=== PATIENT | female | born 1935 | race African-American/Black ===

== ENCOUNTER → 2016-07-07 | Outpatient (CLI) | payer OTHER ==
[~2016-07-07] VITALS: Ht 157.5 cm; Wt 95.3 kg
[~2016-07-07] MED LIST: COUMADIN 1MG TAB1 M1 PO; COUMADIN 2.5MG2.5 M1 PO; COUMADIN 5 MG TA5 M1 PO; CYCLOBENZAPRINE5 MG PO; DUREZOL5 ML OP; FLONASE 0.05%50 MCG NASAL; HYDROCODON-ACE1 EAC7 PO; HYZAAR 100-251 EACH PO; IRON325 PO; NORVASC5 MG PO; PERCOCET PO; PREDNISONE 5 MG5 M1 PO; PROLENSA1.6 ML OP; SIMVASTATIN40 MG PO; TRAMADOL 50 MG50 MG PO; VIGAMOX3 M1 OP; WARFARIN SODIU7.5 MG PO
--- NOTE | ~2016-07-07 | P ---
[facility] [place] [address] PROCEDURE REPORT Name: SAJI PETERSON Room #: [facility]#: [id number] Admission: 07/07/16 Attend Phys: Blaine Crowder Discharge: Date of : 35 Report #: [id number] THIS REPORT FOR: //name// CC: Blaine Steiner MD DATE OF SERVICE: 07/07/2016 PROCEDURE PERFORMED: Colonoscopy. HISTORY OF PRESENT ILLNESS: The patient is an 81-year-old female with previous history of colon polyps. She denies any symptoms at this time. No family history of colon cancer. DESCRIPTION OF PROCEDURE: The risks and benefits of the procedure were explained to the patient, those risks including but not limited to bleeding, perforation and the risk of sedation. She understood these risks and gave informed consent. Sedation was given using propofol per anesthesia. Next, a digital rectal exam was initially performed, which was normal. Next, using a standard Fujinon colonoscope, the scope was placed in the patient's anus and advanced under direct vision to the cecum. The overall prep was excellent. The cecum and ileocecal valve were normal in appearance. Ascending, transverse, descending and sigmoid colon were all normal. The rectal mucosa was normal. On retroflexion, no abnormalities were noted. The scope was then withdrawn and the procedure terminated. The patient tolerated the procedure well. IMPRESSION: Normal colonoscopy. RECOMMENDATIONS: Observe the patient. No further screening colonoscopy is needed. Thank you for allowing me to participate in her care. By: 0925 [id number] Blaine Gill MD /nt
== END | disposition home or self-care (01) ==
LOC: GI 07:40
DX: Z86.010 Personal history of colon polyps (principal); I10 Essential (primary) hypertension; E78.00 Pure hypercholesterolemia, unspecified; M19.90 Unspecified osteoarthritis, unspecified site; Z90.710 Acquired absence of both cervix and uterus; Z85.528 Personal history of other malignant neoplasm of kidney; Z98.41 Cataract extraction status, right eye; Z98.42 Cataract extraction status, left eye; Z96.1 Presence of intraocular lens; Z90.49 Acquired absence of other specified parts of digestive tract; Z98.890 Other specified postprocedural states
CPT/HCPCS: 62110; 62900

== ENCOUNTER → 2017-08-15 | Outpatient (CLI) | payer OTHER ==
[~2017-08-15] MED LIST changes: +TYLENOL EXTRA500 MG PO
== END ==
LOC: NUC 09:29
DX: M85.89 Other specified disorders of bone density and structure, multiple sites (principal); Z78.0 Asymptomatic menopausal state

== ENCOUNTER 2018-06-29 14:32 | Inpatient (IN) | payer OTHER ==
[~2018-06-29] VITALS: Ht 157.5 cm; Wt 98.0 kg
[2018-06-29 14:33] VITALS: BP 87/55
[2018-06-29 15:06] LABS: ABSOLUTE NEUTROPHILS 4.9 thou/uL (1.4-8.2); BASOPHILS 0.8 % (0.0-2.0); EOSINOPHILS 1.4 % (0.0-3.0); HEMATOCRIT 42.2 % (37.0-47.0); HEMOGLOBIN 13.6 gm/dL (12.0-15.0); LYMPHOCYTES 18.2 % (24.0-44.0); MCH 30.1 pg (26.0-34.0); MCHC 32.4 g/dL (28.0-37.0); MONOCYTES 7.1 % (1.0-8.0); POLYS 72.5 % (36.0-66.0); RBC 4.53 mil/uL (4.20-5.00); RDW 14.5 % (10.5-14.5); WBC 6.7 thou/uL (4.0-11.0)
[2018-06-29 15:08] LABS: ANION GAP 10 mmol/L (7-16); BUN 20 mg/dL (7-18); CHLORIDE 101 mmol/L (98-107); CO2 29 mmol/L (21-32); CREATININE 1.7 mg/dL (0.6-1.0); GLUCOSE 157 mg/dL (74-106); POTASSIUM 3.1 mmol/L (3.5-5.1); SODIUM 140 mmol/L (136-145)
[2018-06-29 15:18] LABS: ALBUMIN 3.6 g/dL (3.4-5.0); SGOT 17 U/L (15-37); SGPT 14 U/L (30-65); TOTAL BILIRUBIN 0.8 mg/dL (<0.1-1.0); TOTAL PROTEIN 7.7 g/dL (6.4-8.2); TROPONIN-I <0.06 ng/mL (<0.06)
[2018-06-29 15:50] LABS: LARGE PLATELETS RARE; PLATELET COUNT 143 thou/uL (150-400)
[2018-06-29 16:36] LABS: URINE BLOOD NEGATIVE (Negative); URINE CLARITY CLEAR; URINE COLOR YELLOW; URINE GLUCOSE-RANDOM* NEGATIVE (Negative); URINE KETONES TRACE (Negative); URINE LEUKOCYTES-REFLEX NEGATIVE (Negative); URINE NITRITE-REFLEX NEGATIVE (Negative); URINE PROTEIN (DIPSTICK) 1+ (Negative); URINE SPECIFIC GRAVITY 1.015 (1.005-1.035)
[2018-06-29 16:37] LABS: ICTOTEST (BILI CONFIRMATORY) Negative (Negative); URINE BILIRUBIN NEGATIVE (Negative)
[2018-06-29 16:39] LABS: URINE CREATININE-RANDOM* 278.6 mg/dL
[2018-06-29 16:44] LABS: AMORPHOUS URATES Moderate /LPF (None Seen); BACTERIA-REFLEX 1-9 Few /HPF (None Seen); CASTS None Seen /LPF (None Seen); SQUAMOUS >10 Many /LPF (0-3); URINE RBC 0-2 Rare /HPF (0-2); URINE WBC-REFLEX 0-5 Rare /HPF (0-5)
[2018-06-29 17:55] VITALS: BP 158/69
[2018-06-29 18:00] VITALS: BP 151/68
[2018-06-29 18:10] VITALS: BP 152/83
[2018-06-29 19:40] VITALS: BP 143/78
--- NOTE | 2018-06-29 20:30 | NUR ---
Pt. was admitted to the unit earlier on the day shift. She is resting quietly in the bed and offers no complaints. Admission assessment and history is com- pleted. Bed alarm is on.
[2018-06-29 23:43] VITALS: BP 131/74
--- NOTE | 2018-06-30 04:00 | NUR ---
Pt. rested quietly at intervals during the night when checked on during frequent rounds. Up to the bathroom with assistance of one. Bed alarm is on.
[2018-06-30 04:55] VITALS: BP 124/55
[2018-06-30 05:42] LABS: CREATININE 1.4 mg/dL (0.6-1.0); MAGNESIUM 1.4 mg/dL (1.8-2.4); POTASSIUM 3.5 mmol/L (3.5-5.1)
[2018-06-30 08:00] VITALS: BP 145/83
--- NOTE | 2018-06-30 10:32 | EKG ---
[place] [address] [facility] [place] [address] ELECTROCARDIOGRAM REPORT Name: SAJI PETERSON Room #: 215-P ADM IN M.R.#: [id number] ������������������ Admission: 06/29/18 ������������������ Attend Phys: Librado Huang MD Discharge: ������������������ Date of : 35 Report #: [id number] ����������������������������������������������������������������� [id number] THIS REPORT FOR: //name// [facility] ED Test Date: 2018-06-29 Test Time: 14:50:52 Pat Name: SAJI PETERSON Department: Room: 215 Gender: F Route Driver: LINDA : 1935 Requested By: Arin Harrell Order Number: [id number] MD: Shaheen Avery Measurements Intervals [place] Rate: 70 P: 58 KS: 159 QRS: -1 QRSD: 81 T: 30 QT: 379 QTc: 409 Interpretive Statements Sinus rhythm Probable left atrial enlargement Abnormal R-wave progression, early transition Nonspecific ST segment abnormalities Compared to ECG 09/20/2015 11:48:01 ST (T wave) deviation now present Electronically Signed On 06-30-2018 10:32:31 CDT by Shaheen Avery [email or web address] ��������������������������������������������� <ELECTRONICALLY SIGNED> ���������������������������������������� By: Shaheen Avery MD ��������������������������������������������� 06/30/18 1032 145 49 Shaheen Avery MD /DAVID
[2018-06-30 12:00] VITALS: BP 130/69
[2018-06-30] MEDS ORDERED: MAG6464 MG PO (13:34)
[2018-06-30] MEDS ORDERED: COZAAR 50 MG TA50 M1 PO (13:34)
[2018-06-30 15:17] VITALS: BP 130/69
--- NOTE | 2018-06-30 15:35 | NUR ---
ASSUMED CARE AT 0700, PATIENT AWAKE AND ALERT, OX4. NS WITH 20KCL INFUSING AT 80ML/HR. REPEAT LABS ARE K+ 3.5 AND MG+ 1.4. CALLED TO DR. LINDA, NO NEW ORDERS RECIEVED. DISCHARGE ORDERS RECIEVED THIS AFTERNOON AND EDUCATION COMPLETED WITH PATIENT CONCERNING NEW MEDICATION. VERBALIZED UNDERSTANDING AND FAMILY IN THE ROOM WITH PATIENT. WILL DISCHARGE IN STABLE CONDITION TO HOME
== END 2018-06-30 17:00 | disposition home or self-care (01) | DRG 315 ==
LOC: ER 14:32 → EROBS 17:03 → 2N 18:02
PROVIDERS: Emergency Medicine; Physician Assistant; ADMIT Internal Medicine
DX: I95.9 Hypotension, unspecified (principal); N17.9 Acute kidney failure, unspecified; E78.00 Pure hypercholesterolemia, unspecified; I10 Essential (primary) hypertension; M19.90 Unspecified osteoarthritis, unspecified site; E87.6 Hypokalemia; E83.42 Hypomagnesemia; E66.01 Morbid (severe) obesity due to excess calories; R41.81 Age-related cognitive decline; Z68.39 Body mass index [BMI] 39.0-39.9, adult; Z90.710 Acquired absence of both cervix and uterus; Z90.722 Acquired absence of ovaries, bilateral; Z90.5 Acquired absence of kidney; Z85.528 Personal history of other malignant neoplasm of kidney; Z90.49 Acquired absence of other specified parts of digestive tract; Z98.42 Cataract extraction status, left eye; Z98.41 Cataract extraction status, right eye; Z79.01 Long term (current) use of anticoagulants; Z79.899 Other long term (current) drug therapy
CPT/HCPCS: 10081

== ENCOUNTER 2018-10-17 12:59 | Inpatient (IN) | payer OTHER ==
[~2018-10-17] VITALS: Ht 157.5 cm; Wt 95.9 kg
[~2018-10-17 12:59] MED LIST changes: +COZAAR 50 MG TA50 M1 PO; +MAG6464 MG PO
[2018-10-17 13:32] VITALS: BP 180/102
[2018-10-17] MEDS ORDERED: ARICEPT10 MG PO (14:47)
[2018-10-17] MEDS ORDERED: MEMANTINE HCL E28 MG PO (14:47)
[2018-10-17] MEDS ORDERED: LOSARTAN POTASS50 MG PO (14:48)
[2018-10-17] MEDS ORDERED: MAG6464 MG PO (14:49)
--- NOTE | 2018-10-17 15:36 | NUR ---
PT ADMITTED RELATED TO SOA, CHF. CM REVIEWED CHART AND SPOKE WITH CARE TEAM. CM MET WITH PT AT BEDSIDE THIS DAY. PT IS A&O X4. CM ROLE INTRODUCED. PT INDICATED SHE LIVES IN A HOUSE WITH HER SPOUSE WITH 3 STEPS TO ENTER, 5 STEPS TO BEDROOM, 7 STEPS TO GARAGE, AND 3 STEPS IN BACK. 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 PT INIDCATED NO HH HX. PT'S SPOUSE IS ALSO SURRENLY HOSPITILIZED HERE. PT INDICATED SHE PLANS TO DC HOME ONCE MEDICALLY STABLE. CM TO FOLLOW INIDCTED WITH DC PLANNING.
[2018-10-17 16:09] LABS: HEMATOCRIT 39.4 % (37.0-47.0); HEMOGLOBIN 12.5 gm/dL (12.0-15.0); MCH 29.1 pg (26.0-34.0); MCHC 31.6 g/dL (28.0-37.0); MCV 92.1 fL (80.0-100.0); RBC 4.28 mil/uL (4.20-5.00); RDW 16.6 % (10.5-14.5); WBC 5.1 thou/uL (4.0-11.0)
[2018-10-17 16:21] LABS: PROTIME 20.8 Seconds (9.3-11.4)
[2018-10-17 16:28] LABS: ALBUMIN 3.5 g/dL (3.4-5.0); ANION GAP 9 mmol/L (7-16); BUN 14 mg/dL (7-18); CALCIUM 9.5 mg/dL (8.5-10.1); CHLORIDE 106 mmol/L (98-107); CO2 28 mmol/L (21-32); CREATININE 1.1 mg/dL (0.6-1.0); GLUCOSE 111 mg/dL (74-106); MAGNESIUM 1.6 mg/dL (1.8-2.4); POTASSIUM 3.6 mmol/L (3.5-5.1); SGOT 17 U/L (15-37); SGPT 32 U/L (30-65); SODIUM 143 mmol/L (136-145); TOTAL BILIRUBIN 1.2 mg/dL (<0.1-1.0); TOTAL PROTEIN 6.5 g/dL (6.4-8.2); TROPONIN-I <0.06 ng/mL (<0.06)
[2018-10-17 16:29] VITALS: BP 189/101
[2018-10-17 16:52] LABS: TSH 1.639 uIU/mL (0.358-3.740)
[2018-10-17 16:59] VITALS: BP 108/85
[2018-10-17 19:42] VITALS: BP 151/87
--- NOTE | 2018-10-17 20:22 | NUR ---
PATIENT ALERT AND ORIENTED AND COOPERATIVE WITH PLAN OF CARE. LARGE BM THIS EVNENING.
[2018-10-17 22:11] LABS: URINE BILIRUBIN NEGATIVE (Negative); URINE BLOOD NEGATIVE (Negative); URINE CLARITY CLEAR; URINE COLOR YELLOW; URINE GLUCOSE-RANDOM* NEGATIVE (Negative); URINE KETONES NEGATIVE (Negative); URINE LEUKOCYTES-REFLEX NEGATIVE (Negative); URINE NITRITE-REFLEX NEGATIVE (Negative); URINE PROTEIN (DIPSTICK) NEGATIVE (Negative)
[2018-10-18] VITALS (8 sets, daily range): BP systolic 125–171; BP diastolic 51–102
--- NOTE | 2018-10-18 02:53 | NUR ---
ASSESSMENTS CHARTED. PATIENT URINATING FREQUENTLY WITH INCONTINENCE. LASIX THERAPY. PLAN OF CARE IS TO CONTINUE LASIX TREATMENT, ECHO IN THE AM. HER IS A PATIENT UPSTAIRS ON 4TH FLOOR.
[2018-10-18 05:15] LABS: HEMOGLOBIN 12.2 gm/dL (12.0-15.0); MCH 29.4 pg (26.0-34.0); MCV 91.9 fL (80.0-100.0); RBC 4.14 mil/uL (4.20-5.00); RDW 16.3 % (10.5-14.5); WBC 5.2 thou/uL (4.0-11.0)
[2018-10-18 05:24] LABS: INR 2.5; PROTIME 26.1 Seconds (9.3-11.4)
[2018-10-18 05:30] LABS: CALCIUM 9.5 mg/dL (8.5-10.1); CREATININE 1.1 mg/dL (0.6-1.0); MAGNESIUM 1.3 mg/dL (1.8-2.4)
--- NOTE | 2018-10-18 09:24 | 2DMMODE ---
[facility] [address] [facility] [place] [address] 2 D/M-MODE ECHOCARDIOGRAM Name: SAJI PETERSON Room #: 200-I ADM IN [facility].#: [id number] Admission: 10/17/18 Attend Phys: Roman Shen, Discharge: Date of : 35 Date of Service: 10/18/18 0924 Report #: [id number] THIS REPORT FOR: //name// APPROVED REPORT Study performed: 10/18/2018 08:21:24 EXAM: Comprehensive 2D, Doppler, and color-flow Echocardiogram Patient Location: Echo lab Room #: 200 Status: routine BSA: 2.03 HR: 127 bpm BP: 171/96 mmHg Rhythm: Atrial Flutter Other Information Study Quality: Good Indications Short of breath, edema, Atrial flutter, CHF. Hx: HTN, HLP, morbid obesity. 2D Dimensions RVDd: 35.34 mm IVSd: 14.00 (7-11mm) LVOT Diam: 19.75 (18-24mm) LVDd: 32.17 mm PWd: 14.00 (7-11mm) Ascending Ao: 34.41 (22-36mm) LVDs: 22.13 (25-40mm) Aortic Root: 30.42 mm Volumes Left Atrial Volume (Systole) Single Plane 4CH: 54.81 mL Single Plane 2CH: 44.06 mL LA ESV Index: 26.00 mL/m2 Aortic Valve AoV Peak Fausto.: 1.20 m/s AO Peak Gr.: 5.74 mmHg LVOT Max P.72 mmHg LVOT Max V: 0.96 m/s ROGERIO Vmax: 2.46 cm2 Mitral Valve MV Decel. Time: 132.92 ms MV E Max Fausto.: 1.19 m/s [facility] [place] [address] 2 D/M-MODE ECHOCARDIOGRAM Name: SAJI PETERSON Room #: 200-I [facility] IN ..#: [id number] Admission: 10/17/18 Attend Phys: Roman Shen, Discharge: Date of : 35 Date of Service: 10/18/18 0924 Report #: [id number] Pulmonary Valve PV Peak Fausto.: 0.76 m/s PV Peak Gr.: 2.33 mmHg Tricuspid Valve TR Peak Fausto.: 3.41 m/s RAP Estimate: 10.00 mmHg TR Peak Gr.: 46.63 mmHg PA Pressure: 57.00 mmHg Left Ventricle The left ventricle is normal size. There is normal LV segmental wall motion. Mild to moderate concentric left ventricular hypertrophy. Left ventricular systolic function is normal. LVEF is 60-65%. This study is not technically sufficient to allow evaluation of the LV diastolic function. Right Ventricle The right ventricle is normal size. Right ventricle is mildly hypokinetic. Atria The left atrium size is normal. Right atrium is mildly dilated. Aortic Valve Aortic valve is trileaflet. Trace to mild aortic regurgitation. There is no aortic valvular stenosis. Mitral Valve The mitral valve is normal in structure. Mild mitral regurgitation. Tricuspid Valve The tricuspid valve is normal in structure. Moderate tricuspid regurgitation. Estimated PAP is 55-60mmHg. Pulmonic Valve The pulmonary valve is normal in structure. Mild pulmonic regurgitation. Great Vessels The ascending aorta is normal in size. IVC is dilated and collapses 50% with inspiration. Pericardium Small pericardial effusion. Left and right pleural effusions [facility] [address] [place] [address] 2 D/M-MODE ECHOCARDIOGRAM Name: SAJI PETERSON Room #: 200-I ADM IN [facility].#: [id number] Admission: 10/17/18 Attend Phys: Roman Shen, Discharge: Date of : 35 Date of Service: 10/18/18 0924 Report #: [id number] noted. <Conclusion> The left ventricle is normal size. LVEF is 60-65%. Aortic valve is trileaflet. Trace to mild aortic regurgitation. The mitral valve is normal in structure. Mild mitral regurgitation. The tricuspid valve is normal in structure. Moderate tricuspid regurgitation. Estimated PAP is 55-60mmHg. The pulmonary valve is normal in structure. Mild pulmonic regurgitation. Small pericardial effusion. Left and right pleural effusions noted. <ELECTRONICALLY SIGNED> By: Pedrito Jerez MD 10/18/18923 3 3 Pedrito Jerez MD /INF
--- NOTE | 2018-10-18 13:07 | NUR ---
ASSUMED CARE AT 0700,SHIFT ASSESSMENT DONE, MEDS GIVEN, VSS. WENT FOR ECHO THIS AM. CAME BACK AT 0915. FROM ABOUT 0830, HR HAS BEEN IN THE HIGH 120s, HIGH 128. CARDIOLOGY AND HOSPITALIST INFORMED. ORDER RECEIVED TO GIVE 50 MG METOPROLOL ONE TIME. HR CAME DOWN TO LOW 100. REPORTED HEADECHE, BUT SELF RESOLVED AND DID NOT WANT TYLENOL. WILL CONTINUE TO ASSESS AND ASSIST WITH ADLs NEEDED.
--- NOTE | 2018-10-18 13:44 | EKG ---
[place] [address] [facility] [place] [address] ELECTROCARDIOGRAM REPORT Name: SAJI PETERSON Room #: 200-I ADM IN M.R.#: [id number] Admission: 10/17/18 Attend Phys: Roman Shen MD Discharge: Date of : 35 Report #: [id number] THIS REPORT FOR: //name// [facility] Test Date: 2018-10-18 Test Time: 08:52:04 Pat Name: SAJI PETERSON Department: Room: 200 I Gender: F Laborer General: JOYCE : 1935 Requested By: Beata Gamino Order Number: [id number] MD: Shaheen Avery Measurements Intervals [place] Rate: 128 P: 103 [place]: 133 QRS: 17 QRSD: 95 T: 147 QT: 285 QTc: 416 Interpretive Statements Sinus tachycardia Low voltage, precordial leads Repolarization abnormality, prob rate related Compared to ECG 06/29/2018 14:50:52 Low QRS voltage now present Early repolarization now present Sinus rhythm no longer present Electronically Signed On 10-18-2018 13:44:41 CDT by Shaheen Avery [email or web address] <ELECTRONICALLY SIGNED> By: Shaheen Avery MD 10/18/18 1344 0852 0852 Shaheen Avery MD /[facility]
[2018-10-18 18:44] LABS: MAGNESIUM 1.7 mg/dL (1.8-2.4); POTASSIUM 3.6 mmol/L (3.5-5.1)
--- NOTE | 2018-10-19 04:08 | NUR ---
Pt. rested quietly during the night when checked on during frequent rounds. She offers no c/o shortness of air. Pt. has been in controlled a-fib all shift. No c/o pain offered. Bed alarm is on.
[2018-10-19 04:15] VITALS: BP 143/84
[2018-10-19 05:19] LABS: INR 3.4; PROTIME 35.3 Seconds (9.3-11.4)
[2018-10-19 05:25] LABS: CALCIUM 9.6 mg/dL (8.5-10.1); CREATININE 1.1 mg/dL (0.6-1.0); MAGNESIUM 1.6 mg/dL (1.8-2.4); POTASSIUM 3.6 mmol/L (3.5-5.1)
[2018-10-19 05:27] LABS: HEMATOCRIT 40.8 % (37.0-47.0); MCH 29.3 pg (26.0-34.0); MCHC 31.9 g/dL (28.0-37.0); MCV 91.7 fL (80.0-100.0); RBC 4.45 mil/uL (4.20-5.00); RDW 16.3 % (10.5-14.5); WBC 6.1 thou/uL (4.0-11.0)
[2018-10-19 07:15] VITALS: BP 137/76
--- NOTE | 2018-10-19 11:32 | NUR ---
ASSUMED CARE AT 0700, SHIFT ASSESSMENT DONE, MEDS GIVEN, VSS. DENIES ANY PAIN, NAUSEA, VOMITING. AFIB ON THE MONITOR, RA. LUNG SOUNDS WHEEZY, UP WITH STANDBY, TOOK A SHOWER TODAY. MAGNESIUM WAS 1.7, REPLACEMENT PER PROTOCOL, WILL RECHECK. WILL CONTINUE TO ASSESS AND ASSIST WITH ADLs NEEDED.
[2018-10-19 13:46] VITALS: BP 143/83
[2018-10-19 15:42] VITALS: BP 146/83
[2018-10-19 19:27] VITALS: BP 95/52
--- NOTE | 2018-10-20 04:27 | NUR ---
ASSUMED PT CARE AT 1900. PT A/OX4, VITAL SIGNS STABLE, ASSESSMENT CHARTED. NO COMPLAINTS OF PAIN, NO COMPLAINTS OF SOB. FALL PRECAUTIONS MAINTAINED. RESTED WELL THROUGH THE NIGHT. NO ACUTE CHANGES. PROGRESSING TOWARD PLAN OF CARE. WILL CONTINUE TO MONITOR.
[2018-10-20 04:54] LABS: HEMATOCRIT 38.9 % (37.0-47.0); HEMOGLOBIN 12.4 gm/dL (12.0-15.0); MCH 29.2 pg (26.0-34.0); MCHC 31.9 g/dL (28.0-37.0); MCV 91.6 fL (80.0-100.0); RBC 4.25 mil/uL (4.20-5.00); RDW 16.3 % (10.5-14.5); WBC 5.4 thou/uL (4.0-11.0)
[2018-10-20 05:05] LABS: INR 3.7
[2018-10-20 05:06] LABS: CALCIUM 9.2 mg/dL (8.5-10.1); CREATININE 1.2 mg/dL (0.6-1.0); MAGNESIUM 1.6 mg/dL (1.8-2.4); POTASSIUM 3.3 mmol/L (3.5-5.1)
[2018-10-20 05:13] VITALS: BP 145/68
[2018-10-20 08:35] VITALS: BP 137/100
[2018-10-20 12:06] VITALS: BP 106/62
[2018-10-20 16:33] VITALS: BP 113/56
--- NOTE | 2018-10-20 18:32 | NUR ---
PT CARE ASSUMED APPROX 0700. PT ALERT AND ORIENTED X4. DENIES PAIN AND SOA. VSS. PT UP WITH SBA. STEADY GAIT. TOLERATING POC. MAG AND K+ REPLACED THIS SHIFT. F/U BLOOD WORK BEING COLLECTED AT THIS TIME. WILL F/U. PT DENIES QUESTIONS OR CONCERNS REGARDING POC. NO CHANGES. NO DISTRESS NOTED.
[2018-10-20 19:11] LABS: CALCIUM 9.1 mg/dL (8.5-10.1); CREATININE 1.6 mg/dL (0.6-1.0)
[2018-10-20 20:14] VITALS: BP 91/58
--- NOTE | 2018-10-21 03:08 | NUR ---
ASSUMED CARE OF PATIENT AT 1900. VSSS, AFEBRILE. DENIES PAIN, SOA OR N/V. HAS SOME STRESS INCONTINENCE, UP TO THE TOILET WITH GAIT BELT AND WALKER AND STANDBY. NO S/S OF DISTRESS. RESTING THROUGH THE NIGHT. PROGRESSING TOWARDS POC GOALS.
[2018-10-21 04:54] LABS: HEMATOCRIT 38.9 % (37.0-47.0); HEMOGLOBIN 12.3 gm/dL (12.0-15.0); MCH 29.2 pg (26.0-34.0); MCHC 31.7 g/dL (28.0-37.0); MCV 92.3 fL (80.0-100.0); RBC 4.22 mil/uL (4.20-5.00); RDW 16.4 % (10.5-14.5); WBC 5.3 thou/uL (4.0-11.0)
[2018-10-21 05:10] LABS: CALCIUM 9.5 mg/dL (8.5-10.1); CREATININE 1.4 mg/dL (0.6-1.0); MAGNESIUM 2.1 mg/dL (1.8-2.4); POTASSIUM 3.9 mmol/L (3.5-5.1)
[2018-10-21 05:15] VITALS: BP 131/74
[2018-10-21 08:00] VITALS: BP 121/72
[2018-10-21 10:10] LABS: PROTIME 22.1 Seconds (9.3-11.4)
[2018-10-21 10:12] LABS: INR 2.1
[2018-10-21] MEDS ORDERED: METOPROLOL SUCC50 MG PO ×2 (12:40→12:56)
[2018-10-21] MEDS ORDERED: ELIQUIS5 MG PO (12:46)
[2018-10-21 12:59] VITALS: BP 121/72
--- NOTE | 2018-10-21 13:00 | NUR ---
NOTIFIED [facility] OF REFERRAL FOR HH SPOKE WITH ADM LIASON AND THEY CAN ACCEPT PT AT DC. NOTIFIED OF DC ORDERS FINALIZED AND THEY WILL NOTIFY PT TIME OF VISITS.
--- NOTE | 2018-10-21 13:16 | NUR ---
met with patient who is stable to dc home with HH. Gave patient HH list and reviewed options. She is interested in [facility] as she has no preference. Sp with Tavia intake with [facility], they are accepting of patient. Her PCP is Dr Taylor. Patient will need INR in am. Depending on INR they will determine start of Eloquis. Gave patient Eliquis coupon for home. Instructed HH to call [facility] Hospitalist RN practioner with INR results if cannot reach Dr Taylor. no further needs.
[2018-10-21 14:19] VITALS: BP 121/72
--- NOTE | 2018-10-21 14:53 | NUR ---
PT CARE ASSUMED APPROX 0700. PT ALERT AND ORIENTED X4. DENIES PAIN AND SOA. VSS. UP WITH ASSIST OF 1 AND WALKER. PT DISCHARGED AT THIS TIME. DISCHARGE PAPERWORK REVIEWED WITH PT AND FAMILY. BOTH DENY QUESTIONS AND CONCERNS REGARDING F/U INR TOMORROW, MEDS, SCRIPTS, LABS, F/U APPTS, HOME HEALTH, DIET, ACTIVITY LEVEL AND GENERAL POST HOSPITAL INFORMATION. CV REHAB NURSE DID CHF EDUCATION PRIOR TO DISCHARGE WELL. IV OUT, TELE BOX OFF. HOSPITAL STAFF ESCORTED PT OUT.
== END 2018-10-21 14:50 | disposition home health service (06) | DRG 308 ==
LOC: 2N 12:59 → ENTRNSPT 10-21 14:37 → EDTRNSPTSTS 10-21 14:40 → 2N 10-21 14:50
PROVIDERS: ADMIT Internal Medicine
DX: I48.92 Unspecified atrial flutter (principal); I50.31 Acute diastolic (congestive) heart failure; E78.5 Hyperlipidemia, unspecified; E78.00 Pure hypercholesterolemia, unspecified; E87.6 Hypokalemia; E83.42 Hypomagnesemia; M19.90 Unspecified osteoarthritis, unspecified site; I11.0 Hypertensive heart disease with heart failure; Z79.01 Long term (current) use of anticoagulants; Z80.9 Family history of malignant neoplasm, unspecified; Z79.899 Other long term (current) drug therapy; Z90.710 Acquired absence of both cervix and uterus; Z90.49 Acquired absence of other specified parts of digestive tract; Z98.42 Cataract extraction status, left eye; Z98.41 Cataract extraction status, right eye; Z90.5 Acquired absence of kidney; Z86.718 Personal history of other venous thrombosis and embolism
CPT/HCPCS: 10081

== ENCOUNTER → 2018-12-30 | Outpatient (CLI) | payer OTHER ==
[~2018-12-30] VITALS: Ht 157.5 cm; Wt 103.4 kg
[~2018-12-30] MED LIST changes: +ARICEPT10 MG PO; +ELIQUIS5 MG PO; +FUROSEMIDE 40 M40 MG PO; +KLOR-CON20 ME1 PO; +LOSARTAN POTASS50 MG PO; +MELATONIN3 M1 PO; +MEMANTINE HCL E28 MG PO; +METOPROLOL SUCC50 MG PO; +PACERONE200 MG PO; +TOPROL XL50 MG PO
[2018-12-30 07:16] VITALS: BP 173/101
[2018-12-30 07:24] LABS: ABSOLUTE NEUTROPHILS 4.1 thou/uL (1.4-8.2); BASOPHILS 0.6 % (0.0-2.0); EOSINOPHILS 1.6 % (0.0-3.0); HEMATOCRIT 42.2 % (37.0-47.0); HEMOGLOBIN 13.2 gm/dL (12.0-15.0); MCH 30.1 pg (26.0-34.0); MCHC 31.3 g/dL (28.0-37.0); MCV 95.9 fL (80.0-100.0); MONOCYTES 10.3 % (1.0-8.0); PLATELET COUNT 112 thou/uL (150-400); POLYS 70.5 % (36.0-66.0); RDW 16.5 % (10.5-14.5); WBC 5.9 thou/uL (4.0-11.0)
[2018-12-30 07:31] LABS: CALCIUM 9.8 mg/dL (8.5-10.1); CREATININE 1.4 mg/dL (0.6-1.0); POTASSIUM 3.4 mmol/L (3.5-5.1)
[2018-12-30 07:37] LABS: ALBUMIN 3.6 g/dL (3.4-5.0); TOTAL BILIRUBIN 2.2 mg/dL (<0.1-1.0); TOTAL PROTEIN 7.1 g/dL (6.4-8.2)
[2018-12-30 07:40] LABS: APTT 38.9 Seconds (24.5-32.8); INR 1.3; PROTIME 13.5 Seconds (9.3-11.4)
--- NOTE | 2019-01-16 12:28 | P ---
[facility] [place] [address] PROCEDURE REPORT Name: SAJI PETERSON Room #: [facility]#: [id number] Admission: 12/30/18 Attend Phys: Taran Shankar MD Discharge: Date of : 35 Report #: [id number] THIS REPORT FOR: //name// CC: Taran Steiner PROCEDURE: Cardioversion. PREOPERATIVE DIAGNOSIS: Atrial fibrillation. POSTOPERATIVE DIAGNOSIS: Atrial fibrillation. DESCRIPTION OF PROCEDURE: The patient underwent informed consent. She was prepped in a standard fashion. She was sedated by the Anesthesiology Service. Once sedated, she underwent a 200 joule synchronized cardioversion with hinduism of sinus rhythm. There were no procedure related complications. CONCLUSIONS: Successful DC cardioversion with hinduism of sinus rhythm. <ELECTRONICALLY SIGNED> By: Taran Shankar MD 01/16/19 1228 1614 0152 Taran Shankar MD /nt
== END | disposition home or self-care (01) ==
LOC: CATH 06:32
PROVIDERS: Internal Medicine Cardiovascular Disease
DX: I48.91 Unspecified atrial fibrillation (principal); I48.92 Unspecified atrial flutter; I11.0 Hypertensive heart disease with heart failure; I50.9 Heart failure, unspecified; E78.5 Hyperlipidemia, unspecified; E66.09 Other obesity due to excess calories; M19.90 Unspecified osteoarthritis, unspecified site; Z82.49 Family history of ischemic heart disease and other diseases of the circulatory system; Z90.710 Acquired absence of both cervix and uterus; Z90.49 Acquired absence of other specified parts of digestive tract; Z98.41 Cataract extraction status, right eye; Z98.42 Cataract extraction status, left eye; Z90.5 Acquired absence of kidney; Z85.528 Personal history of other malignant neoplasm of kidney; Z86.2 Personal history of diseases of the blood and blood-forming organs and certain disorders involving the immune mechanism; Z79.01 Long term (current) use of anticoagulants; Z79.899 Other long term (current) drug therapy
CPT/HCPCS: 62110; 62900

== ENCOUNTER 2019-03-31 13:47 | Emergency (ER) | payer OTHER ==
[~2019-03-31] VITALS: Ht 157.5 cm; Wt 90.3 kg
[2019-03-31 14:18] LABS: ABSOLUTE NEUTROPHILS 4.1 thou/uL (1.4-8.2); BASOPHILS 0.7 % (0.0-2.0); EOSINOPHILS 1.7 % (0.0-3.0); HEMATOCRIT 45.5 % (37.0-47.0); HEMOGLOBIN 14.3 gm/dL (12.0-15.0); LYMPHOCYTES 16.3 % (24.0-44.0); MCH 30.8 pg (26.0-34.0); MCHC 31.5 g/dL (28.0-37.0); MCV 97.8 fL (80.0-100.0); MONOCYTES 7.7 % (1.0-8.0); POLYS 73.6 % (36.0-66.0); RBC 4.65 mil/uL (4.20-5.00); RDW 15.3 % (10.5-14.5); WBC 5.6 thou/uL (4.0-11.0)
[2019-03-31 14:30] LABS: ANION GAP 7 mmol/L (7-16); BUN 12 mg/dL (7-18); CALCIUM 11.1 mg/dL (8.5-10.1); CHLORIDE 103 mmol/L (98-107); CO2 30 mmol/L (21-32); CREATININE 1.2 mg/dL (0.6-1.0); GLUCOSE 114 mg/dL (74-106); POTASSIUM 4.1 mmol/L (3.5-5.1); SODIUM 140 mmol/L (136-145)
[2019-03-31 14:41] LABS: MAGNESIUM 1.7 mg/dL (1.8-2.4); PLATELET COUNT 113 thou/uL (150-400); SGOT 24 U/L (15-37); SGPT 18 U/L (30-65); TOTAL BILIRUBIN 1.8 mg/dL (<0.1-1.0); TOTAL PROTEIN 7.6 g/dL (6.4-8.2); TROPONIN-I <0.06 ng/mL (<0.06)
[2019-03-31 14:42] LABS: LARGE PLATELETS RARE
--- NOTE | 2019-03-31 15:04 | EKG ---
[facility] [place] [address] ELECTROCARDIOGRAM REPORT Name: SAJI PETERSON Room #: [facility] M.R.#: [id number] Admission: Attend Phys: Discharge: Date of : 35 Report #: [id number] THIS REPORT FOR: //name// [facility] ED Test Date: 2019-03-31 Test Time: 13:46:55 Pat Name: SAJI PETERSON Department: Room: Gender: F Division Operations Manager: LINDA : 1935 Requested By: Davion Alba Order Number: [id number] MD: Taran Shankar Measurements Intervals [place] Rate: 88 P: KS: QRS: -18 QRSD: 60 T: QT: 358 QTc: 434 Interpretive Statements Atrial flutter Borderline left axis deviation Low voltage, precordial leads RSR' in V1 or V2, probably normal variant Nonspecific repol abnormality, diffuse leads Compared to ECG 10/18/2018 08:52:04 RSR' in V1 or V2 now present Sinus tachycardia no longer present Electronically Signed On 03-31-2019 15:03:49 GLASS WASHER by Taran Shankar [email or web address] <ELECTRONICALLY SIGNED> By: Taran Shankar MD 03/31/19 1503 1346 1346 Taran Shankar MD /EPI
[2019-03-31 15:52] LABS: LIPASE 39 U/L (73-393)
[2019-03-31 19:18] VITALS: BP 166/96
== END 2019-03-31 20:01 | disposition home or self-care (01) ==
LOC: ER 13:47
PROVIDERS: Emergency Medicine
DX: R07.89 Other chest pain (principal); R10.13 Epigastric pain; I11.0 Hypertensive heart disease with heart failure; I50.9 Heart failure, unspecified; M19.90 Unspecified osteoarthritis, unspecified site; Z90.49 Acquired absence of other specified parts of digestive tract; I48.92 Unspecified atrial flutter

== ENCOUNTER → 2019-04-01 | Outpatient (CLI) | payer OTHER | LOC: SJCVCIMAG 13:22 | DX: I08.8 Other rheumatic multiple valve diseases (principal); I11.0 Hypertensive heart disease with heart failure; I50.32 Chronic diastolic (congestive) heart failure; I48.21 Permanent atrial fibrillation; E78.5 Hyperlipidemia, unspecified; Z79.1 Long term (current) use of non-steroidal anti-inflammatories (NSAID); Z79.891 Long term (current) use of opiate analgesic; Z79.899 Other long term (current) drug therapy; Z90.5 Acquired absence of kidney; Z86.718 Personal history of other venous thrombosis and embolism ==

== ENCOUNTER → 2019-04-01 | Outpatient (CLI) | payer OTHER | LOC: SJCVC 15:19 | DX: I11.0 Hypertensive heart disease with heart failure (principal); I50.32 Chronic diastolic (congestive) heart failure; E78.00 Pure hypercholesterolemia, unspecified; R94.31 Abnormal electrocardiogram [ECG] [EKG]; M47.816 Spondylosis without myelopathy or radiculopathy, lumbar region; I48.92 Unspecified atrial flutter; I73.9 Peripheral vascular disease, unspecified; E78.5 Hyperlipidemia, unspecified; Z90.5 Acquired absence of kidney; Z79.899 Other long term (current) drug therapy ==

== ENCOUNTER → 2019-05-08 | Outpatient (CLI) | payer OTHER | LOC: RAD 12:32 | DX: R63.4 Abnormal weight loss (principal) ==

== ENCOUNTER → 2019-05-15 | Outpatient (CLI) | payer OTHER | LOC: CAT 13:01 | DX: N20.0 Calculus of kidney (principal); N28.1 Cyst of kidney, acquired; Z90.49 Acquired absence of other specified parts of digestive tract; Z90.5 Acquired absence of kidney ==

== ENCOUNTER 2019-09-28 15:21 | Emergency (ER) | payer OTHER ==
[~2019-09-28] VITALS: Ht 157.5 cm; Wt 90.7 kg
[2019-09-28 15:58] LABS: BASOPHILS 0.6 % (0.0-2.0); EOSINOPHILS 0.9 % (0.0-3.0); HEMATOCRIT 44.6 % (37.0-47.0); HEMOGLOBIN 14.2 gm/dL (12.0-15.0); LYMPHOCYTES 13.2 % (24.0-44.0); MCH 31.5 pg (26.0-34.0); MCHC 31.9 g/dL (28.0-37.0); MCV 98.7 fL (80.0-100.0); PLATELET COUNT 115 thou/uL (150-400); POLYS 76.3 % (36.0-66.0); RBC 4.52 mil/uL (4.20-5.00); RDW 16.5 % (10.5-14.5); WBC 5.3 thou/uL (4.0-11.0)
[2019-09-28 16:27] VITALS: BP 166/85
[2019-09-28 17:02] LABS: CALCIUM 10.7 mg/dL (8.5-10.1); CREATININE 1.2 mg/dL (0.6-1.0); POTASSIUM 3.7 mmol/L (3.5-5.1)
[2019-09-28 17:09] LABS: TOTAL BILIRUBIN 1.4 mg/dL (0.2-1.0); TOTAL PROTEIN 7.8 g/dL (6.4-8.2)
--- NOTE | 2019-09-29 08:26 | EKG ---
[facility] [place] [address] ELECTROCARDIOGRAM REPORT Name: SAJI PETERSON Room #: [facility]#: [id number] Admission: 09/28/19 Attend Phys: Discharge: 09/28/19 Date of : 35 Report #: [id number] THIS REPORT FOR: cc: Ryne Steiner,Danyel Mcnulty MD [facility] THIS REPORT FOR: //name// [facility] ED Test Date: 2019-09-28 Test Time: 16:05:24 Pat Name: SAJI PETERSON Department: Room: Gender: Patient Placement Coordinator: [facility] : 1935 Requested By: Glenda Gloria Order Number: [id number] MD: Danyel Alvarado Measurements Intervals [place] Rate: 104 P: PA: QRS: 5 QRSD: 96 T: 0 QT: 442 QTc: 582 Interpretive Statements Atrial flutter Poor R wave progression Nonspecific ST and T wave abnormality Prolonged QT interval Compared to ECG 03/31/2019 13:46:55 No significant change was found Electronically Signed On 09-29-2019 8:26:01 CDT by Danyel Alvarado [email or web address] <ELECTRONICALLY SIGNED> By: Danyel Alvarado MD, [facility] 09/29/19 0826 1605 1605 Danyel Alvarado MD, [facility] /EPI
== END 2019-09-28 17:30 | disposition home or self-care (01) ==
LOC: ER 15:21
PROVIDERS: Physician Assistant
DX: S09.90XA Unspecified injury of head, initial encounter (principal); I11.0 Hypertensive heart disease with heart failure; I50.9 Heart failure, unspecified; E78.00 Pure hypercholesterolemia, unspecified; I48.91 Unspecified atrial fibrillation; Z86.73 Personal history of transient ischemic attack (TIA), and cerebral infarction without residual deficits; Z90.49 Acquired absence of other specified parts of digestive tract; Z90.710 Acquired absence of both cervix and uterus; Z79.01 Long term (current) use of anticoagulants; Z79.899 Other long term (current) drug therapy; W06.XXXA Fall from bed, initial encounter; Y93.89 Activity, other specified; Y92.89 Other specified places as the place of occurrence of the external cause; Y99.8 Other external cause status

== ENCOUNTER → 2019-10-13 | Outpatient (CLI) | payer OTHER | LOC: RAD 14:43 | PROVIDERS: ATTEND Neuromusculoskeletal Medicine & OMM | DX: M47.816 Spondylosis without myelopathy or radiculopathy, lumbar region (principal); M48.061 Spinal stenosis, lumbar region without neurogenic claudication ==

== ENCOUNTER → 2019-10-21 | Outpatient (CLI) | payer OTHER | LOC: SJCVC 13:31 | PROVIDERS: ATTEND Internal Medicine Cardiovascular Disease | DX: I48.92 Unspecified atrial flutter (principal); I44.30 Unspecified atrioventricular block; R94.31 Abnormal electrocardiogram [ECG] [EKG]; I11.0 Hypertensive heart disease with heart failure; I50.32 Chronic diastolic (congestive) heart failure; I48.11 Longstanding persistent atrial fibrillation; E78.5 Hyperlipidemia, unspecified; Z79.899 Other long term (current) drug therapy; Z82.49 Family history of ischemic heart disease and other diseases of the circulatory system ==

== ENCOUNTER → 2020-10-20 | Outpatient (CLI) | payer OTHER | LOC: SJCVC 13:01 | PROVIDERS: ATTEND Internal Medicine Cardiovascular Disease | DX: R94.31 Abnormal electrocardiogram [ECG] [EKG] (principal); I48.92 Unspecified atrial flutter; I48.19 Other persistent atrial fibrillation; I11.0 Hypertensive heart disease with heart failure; I50.32 Chronic diastolic (congestive) heart failure; E78.5 Hyperlipidemia, unspecified; Z98.890 Other specified postprocedural states; Z79.899 Other long term (current) drug therapy; Z82.49 Family history of ischemic heart disease and other diseases of the circulatory system ==